=== PATIENT | male | born 1965 | race African-American/Black ===

== ENCOUNTER 2025-05-29 14:38 | Emergency (ER) | payer OTHER ==
[~2025-05-29] VITALS: Ht 182.8 cm; Wt 62.1 kg
== END 2025-05-29 16:27 | disposition home or self-care (01) ==
LOC: ED 14:38
DX: S46.912A Strain of unspecified muscle, fascia and tendon at shoulder and upper arm level, left arm, initial encounter (principal); M25.511 Pain in right shoulder; X58.XXXA Exposure to other specified factors, initial encounter; Y93.89 Activity, other specified; Y92.89 Other specified places as the place of occurrence of the external cause; Y99.8 Other external cause status